=== PATIENT | female | born 1990 | race Caucasian/White ===

== ENCOUNTER 2016-07-20 18:38 | Inpatient (IN) | payer BC ==
[~2016-07-20] VITALS: Ht 160 cm; Wt 102.0 kg
[2016-07-20 19:30] LABS: ADD SCAN DIFF NO
[2016-07-20] MEDS ORDERED: CARBOPROST 250 MCG INJ IM PRN (19:30)
[2016-07-20] MEDS ORDERED: MISOPROSTOL 200 MCG TAB PR PRN (19:30)
[2016-07-20] MEDS ORDERED: LIDOCAINE 1% (MPF) 30 ML INJ INJ PRN (19:30)
[2016-07-20] MEDS ORDERED: OXYTOCIN 30 UNITS/LR 500 ML IV SCH ×3 (19:30)
[2016-07-20] MEDS ORDERED: OXYTOCIN 30 UNITS/LR 500 ML IV PRN (19:30)
[2016-07-20] MEDS ORDERED: METHYLERGONOVINE 0.2 MG INJ IM PRN (19:30)
[2016-07-20 19:35] LABS: BASOPHILS % 0.2 % (0.0-2.0); EOSINOPHILS # 0.1 10^3/ul (0.0-0.5); EOSINOPHILS % 1.2 % (0.0-7.0); HEMATOCRIT 36.2 % (37.0-47.0); LYMPHOCYTES # 2.2 10^3/ul (0.8-2.9); LYMPHOCYTES % 19.5 % (15.0-51.0); MEAN CORPUSCULAR HEMOGLOBIN 28.5 pg (29.0-33.0); MEAN CORPUSCULAR HGB CONC 33.1 g/dl (32.0-37.0); MEAN PLATELET VOLUME 10.6 fl (7.4-10.4); MONOCYTE # 0.9 10^3/ul (0.3-0.9); MONOCYTES % 7.7 % (0.0-11.0); NEUTROPHILS % 70.4 % (39.0-77.0); PLATELET COUNT 301 10^3/UL (140-415); RED BLOOD COUNT 4.21 10^6/ul (4.20-5.40); RED CELL DISTRIBUTION WIDTH 14.1 % (11.5-14.5); WHITE BLOOD COUNT 11.3 10^3/ul (4.8-10.8)
[2016-07-20] MEDS ORDERED: LACTATED RINGER'S 1,000 ML IV PRN (19:40)
[2016-07-20 20:02] LABS: INR 0.92; PROTIME 12.4 Sec (12.2-14.2)
[2016-07-20 20:03] LABS: PARTIAL THROMBOPLASTIN TIME 29.2 Sec (25.0-35.0)
[2016-07-20] MEDS: LACTATED RINGER'S 1,000 ML IV SCH (20:17)
[2016-07-20 21:06] VITALS: BP 124/78; PULSE 87; RESP 18
[2016-07-20 21:07] VITALS: Ht 160 cm; Wt 102.0 kg
[2016-07-21] MEDS ORDERED: FENTAnyl 2MCG/ML-ROPIV 0.2% 100 ML ONE (00:19)
[2016-07-21] MEDS ORDERED: DIPHENHYDRAMINE 50 MG INJ IV PRN ×3 (00:30→17:00)
[2016-07-21] MEDS ORDERED: FENTAnyl 2MCG/ML-ROPIV 0.2% 100 ML BAG EPI SCH (00:30)
[2016-07-21] MEDS ORDERED: ONDANSETRON 4 MG INJ IV PRN ×3 (00:30→17:00)
[2016-07-21] MEDS ORDERED: NALOXONE (0.4 MG/ML) INJ IV PRN ×2 (00:30→17:00)
[2016-07-21] MEDS: LACTATED RINGER'S 1,000 ML IV SCH ×3 (01:09→21:00)
[2016-07-21] MEDS ORDERED: LACTATED RINGER'S 1,000 ML IV ONE (14:26)
[2016-07-21] MEDS ORDERED: METOCLOPRAMIDE 10 MG INJ IV ONE (14:30)
[2016-07-21] MEDS ORDERED: CLINDAMYCIN 900 MG/D5W (PMX) 50 ML IVPB ONE (14:30)
[2016-07-21] MEDS ORDERED: FAMOTIDINE 20 MG INJ IV ONE (14:30)
[2016-07-21] MEDS ORDERED: CITRIC ACID/NA CITRATE 30 ML CUP PO ONE (14:30)
[2016-07-21] MEDS ORDERED: LIDOCAINE 2%/EPI 30 ML INJ ONE (14:54)
[2016-07-21] MEDS ORDERED: morphine SULFATE/PF (10 MG/10 ML) INJ ONE (14:54)
[2016-07-21] MEDS ORDERED: NA BICARBONATE 8.4% 50 ML SYG ONE (14:55)
[2016-07-21] MEDS ORDERED: FENTAnyl 50 MCG/ML VIAL ONE (14:55)
[2016-07-21] MEDS ORDERED: PHENYLephrine (100 MCG/ML) 5ML SYG ONE ×2 (15:03→15:39)
[2016-07-21] MEDS ORDERED: KETOROLAC 30 MG INJ IV PRN ×2 (15:30→17:00)
[2016-07-21] MEDS ORDERED: HYDROmorphONE (0.2 MG/ML) 10ML SYG IV PRN (15:30)
[2016-07-21] MEDS ORDERED: PROCHLORPERAZINE 10 MG INJ IV PRN ×2 (15:30→17:00)
[2016-07-21] MEDS ORDERED: FENTAnyl 50 MCG/ML VIAL IV PRN (15:30)
[2016-07-21] MEDS ORDERED: MEPERIDINE 25 MG INJ IV PRN (15:30)
[2016-07-21] MEDS ORDERED: OXYTOCIN 30 UNITS/LR 500 ML IV ONE (15:46)
[2016-07-21] MEDS ORDERED: OXYCODONE/ACETAMINOPHEN (5/325) TAB PO PRN (16:30)
[2016-07-21] MEDS ORDERED: LANOLIN 7 GM TUBE TOP PRN (16:30)
[2016-07-21] MEDS ORDERED: MISOPROSTOL 200 MCG TAB PR PRN (16:30)
[2016-07-21] MEDS ORDERED: METHYLERGONOVINE 0.2 MG INJ IM PRN (16:30)
[2016-07-21] MEDS ORDERED: CARBOPROST 250 MCG INJ IM PRN (16:30)
[2016-07-21] MEDS ORDERED: OXYTOCIN 30 UNITS/LR 500 ML IV PRN (16:30)
[2016-07-21] MEDS ORDERED: HYDROmorphONE 1 MG/ML SYG IV PRN ×2 (17:00)
[2016-07-21] MEDS ORDERED: ZOLPIDEM 5 MG TAB PO PRN (17:00)
[2016-07-21] MEDS ORDERED: NALBUPHINE HCL (10 MG/1 ML) INJ IV PRN (17:00)
[2016-07-21] MEDS ORDERED: EPHEDrine SULFATE 50 MG/5 ML SYG ONE (17:26)
[2016-07-21 18:50] VITALS: BP 108/57; PULSE 101; RESP 20
[2016-07-21 19:30] VITALS: BP 122/60; PULSE 109; RESP 20
[2016-07-22 00:05] VITALS: BP 105/59; PULSE 99; RESP 19
[2016-07-22 04:05] VITALS: BP 118/67; PULSE 95; RESP 18
[2016-07-22] MEDS: LACTATED RINGER'S 1,000 ML IV SCH ×2 (04:32→12:28)
--- NOTE | 2016-07-22 04:38 | OPR ---
DATE OF OPERATION: 07/21/2016 PREOPERATIVE DIAGNOSES: 1. Intrauterine at 39 weeks. 2. Arrest of descent. 3. Occiput posterior presentation. POSTOPERATIVE DIAGNOSES: 1. Intrauterine at 39 weeks. 2. Arrest of descent. 3. Occiput posterior presentation. 4. Status post delivery of a viable male infant weighing 3800 grams or 8 pounds 6 ounces with scores of 9 and 9. OPERATION PERFORMED: Primary low transverse section. SURGEON: Giovany Puentes MD CAUSTIC CRESYLATE SHIFT SUPERINTENDENT: Matilda Correa MD ANESTHESIA: Dr. Marcos with an epidural. ESTIMATED BLOOD LOSS: 500 mL COMPLICATIONS: None. PROCEDURE IN DETAIL: The patient was brought to the operating room, placed on the operating room table. Additional medication was given per her epidural catheter. A Can catheter was already in place. She was prepped and draped in usual sterile fashion. A Pfannenstiel incision was made using a knife through the skin and subcutaneous tissue down to the level of fascia. Fascia was incised and extended bilaterally using Bovie and scissors. Superior edge of the fascia was grasped with Gregory clamps, and the rectus muscles were from the overlying fascia using blunt dissection and Bovie cautery. This was repeated at the lower edge of the incision as well. The rectus muscles were in midline using the surgeon's fingers, and the anterior peritoneum was bluntly entered. The incision was then stretched open with hands. The bladder flap was developed using Metzenbaum scissors and blunt dissection. The lower uterine segment was then incised and entered with a Shana clamp. The fluid was clear. The incision was stretched open. The head was elevated through the incision, was not low in the pelvis, and was easy to bring out with a fair amount of caput on top and was occiput posterior presentation. Head was delivered with gentle fundal pressure. The rest of the baby was easily delivered. The mouth and nares were bulb suctioned, the cord was doubly clamped and cut, and the baby was brought to the warmer where the respiratory team was in attendance. The placenta was removed. The uterus was externalized, wrapped in a moist lap, and a dry lap was used to clean the interior of the uterus. The incision was closed in 2 layers using #1 chromic in a running locking stitch with excellent tissue approximation and hemostasis. Tubes and ovaries were examined and noted to be normal. The pelvis was irrigated well. Uterus was replaced back into the abdomen. Incision was examined again and noted to be dry. The anterior peritoneum was closed using 2- 0 chromic in a running stitch. The rectus muscles were brought back together at midline with the same suture. The underbelly of the fascia was examined and noted to be dry. The fascia was then closed using 0 Vicryl suture in a running stitch from each lateral edge to midline with overlap at the midline. The subcutaneous tissue was irrigated well, cautery applied where needed for hemostasis. That layer was closed using 2-0 chromic in a running stitch, and the skin was closed with 3-0 Monocryl in a subcuticular stitch. Steri-Strips with Mastisol were placed, and a pressure dressing was applied overall. The patient tolerated the procedure very well and was brought to recovery room in excellent condition. Dictated By: GIOVANY NEGRON/ENDY Conf#: [id number] DID#: [id number]
[2016-07-22 08:20] LABS: ADD SCAN DIFF NO
[2016-07-22 08:30] VITALS: BP 117/64; PULSE 95; RESP 20
[2016-07-22 08:35] LABS: BASOPHILS % 0.1 % (0.0-2.0); HEMATOCRIT 28.3 % (37.0-47.0); HEMOGLOBIN 8.9 g/dl (12.0-16.0); LYMPHOCYTES # 2.4 10^3/ul (0.8-2.9); MEAN CORPUSCULAR HEMOGLOBIN 27.9 pg (29.0-33.0); MEAN CORPUSCULAR HGB CONC 31.4 g/dl (32.0-37.0); MEAN CORPUSCULAR VOLUME 88.7 fl (82.0-101.0); MEAN PLATELET VOLUME 10.7 fl (7.4-10.4); MONOCYTE # 1.3 10^3/ul (0.3-0.9); MONOCYTES % 6.1 % (0.0-11.0); NEUTROPHIL # 17.5 10^3/ul (1.6-7.5); NEUTROPHILS % 81.9 % (39.0-77.0); PLATELET COUNT 223 10^3/UL (140-415); RED BLOOD COUNT 3.19 10^6/ul (4.20-5.40); RED CELL DISTRIBUTION WIDTH 14.8 % (11.5-14.5); WHITE BLOOD COUNT 21.4 10^3/ul (4.8-10.8)
[2016-07-22 12:45] VITALS: BP 115/62; PULSE 93; RESP 20
--- NOTE | 2016-07-22 14:51 | PN ---
Date/Time of Note Date/Time of Note DATE: 07/22/16 TIME: 14:47 OB Subjective Subjective Subjective passinfg flatus no significant c/o OB Objective Objective Objective vss afebrile abdomen soft wound dry lochia mod calf no tenderness wbc 21.4000 hnh 8.9/28.3 OB Assessment/Plan Other Assessment: stable POD #1 leukocytosis Other plan: repeat CBC URIEL MAURER MD Jul 22, 2016 14:51
[2016-07-22 16:00] VITALS: BP 124/72; PULSE 95; RESP 20
[2016-07-22] MEDS: IBUPROFEN 800 MG TAB PO SCH ×2 (17:18→21:59)
--- NOTE | 2016-07-22 17:26 | PREOPHP ---
DATE OF ADMISSION: 07/20/2016 HISTORY OF PRESENT ILLNESS: Patient is a 26-year-old 5, para 0, AB 4, spontaneous 3, therapeutic 1 with an intrauterine at age 39 weeks 1 day at delivery who was admitted for induction of labor. 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 Also of note, she has had extreme water retention over the last 2 months with higher blood pressures were normal, but not in the preeclamptic range. I am, therefore, inducing the patient. On examination, the patient was 70%, 3 cm, -2 station a week prior to admission and was admitted for a Pitocin induction. PAST MEDICAL HISTORY: Only the recurrent loss. Workup for antiphospholipid syndrome that was negative. PAST SURGICAL HISTORY: She had wisdom teeth removed. She had 3 D and C's. ALLERGIES: 1. PENICILLIN. 2. CODEINE. 3. SULFA. 4. LATEX GLOVES. MEDICATIONS: vitamins only. PHYSICAL EXAMINATION: HEART: Regular rate and rhythm. LUNGS: Clear to auscultation. ABDOMEN: Soft, nontender, gravid. PELVIC: Cervical exam 70%, 3 - 2, intact on admission. EXTREMITIES: 3+ edema. LABORATORY DATA: Patient's blood work: HIV negative. TSH was normal. RPR nonreactive. Hepatitis B surface antigen negative, hepatitis C antibody negative, rubella immune, urinalysis and urine drug screens were negative. Hemoglobin initially 13.5 with a white count of 9.7, platelets 240,000. Hemoglobin A1c was normal at 5. LABORATORY WORK: Blood type A positive, antibody screen negative. She is beta strep negative and 1 hour post-Glucola was also normal at 90. Repeat hemoglobin at that time was 10.6. Patient was brought in for induction and she was initiated on Pitocin, contracted very quickly to regular contractions over the first few hours with Pitocin, to every 2 to 3 minutes. Hospital course: The patient is moderately uncomfortable. Water was then broken and very quickly progressed to intolerable contractions and she received her epidural in the morning. From 11:00 at night until 7:00 in the morning, the patient progressed. She was 5 to 6 cm early in the morning. At 9:00, she was 8 to 9 cm. The vertex was still high and she progressed to complete at about noontime and about 1:00 we started pushing with the patient. The patient was an excellent pusher with good breath holding and good endurance; however, she never brought the baby's head down. We also noted that the baby was occiput posterior at presentation. After an hour to an hour and a half of pushing, the patient after discussion opted for a section. We had her sign a consent and proceeded in that direction. ASSESSMENT: Intrauterine at 39 weeks. Occiput posterior presentation and arrest of descent. PLAN: Primary low transverse section. Dictated By: AB NEGRON/ENDY Conf#: [id number] DID#: [id number] GABI
[2016-07-22 20:00] VITALS: BP 116/75; PULSE 94; RESP 19
[2016-07-23] VITALS: BP 119/77; PULSE 93; RESP 18
[2016-07-23] MEDS: LACTATED RINGER'S 1,000 ML IV SCH ×4 (00:19→16:19)
[2016-07-23 03:45] VITALS: BP 128/82; PULSE 86; RESP 19
[2016-07-23] MEDS: OXYCODONE/ACETAMINOPHEN (5/325) TAB PO PRN ×3 (04:52→17:50)
[2016-07-23] MEDS: IBUPROFEN 800 MG TAB PO SCH ×3 (05:45→23:10)
[2016-07-23 07:05] LABS: ADD SCAN DIFF NO
[2016-07-23 07:11] LABS: BASOPHILS % 0.2 % (0.0-2.0); EOSINOPHILS # 0.1 10^3/ul (0.0-0.5); EOSINOPHILS % 0.5 % (0.0-7.0); HEMATOCRIT 28.9 % (37.0-47.0); HEMOGLOBIN 9.5 g/dl (12.0-16.0); LYMPHOCYTES # 2.1 10^3/ul (0.8-2.9); LYMPHOCYTES % 11.3 % (15.0-51.0); MEAN CORPUSCULAR HEMOGLOBIN 29.1 pg (29.0-33.0); MEAN CORPUSCULAR HGB CONC 32.9 g/dl (32.0-37.0); MEAN CORPUSCULAR VOLUME 88.7 fl (82.0-101.0); MONOCYTE # 1.1 10^3/ul (0.3-0.9); MONOCYTES % 5.8 % (0.0-11.0); NEUTROPHIL # 15.3 10^3/ul (1.6-7.5); NEUTROPHILS % 80.9 % (39.0-77.0); PLATELET COUNT 242 10^3/UL (140-415); RED BLOOD COUNT 3.26 10^6/ul (4.20-5.40); RED CELL DISTRIBUTION WIDTH 14.6 % (11.5-14.5); WHITE BLOOD COUNT 18.9 10^3/ul (4.8-10.8)
[2016-07-23 07:30] VITALS: BP 131/78; PULSE 86; RESP 18
--- NOTE | 2016-07-23 14:01 | PN ---
Date/Time of Note Date/Time of Note DATE: 07/23/16 TIME: 14:00 OB Subjective Subjective Subjective no b.m yet tolerating diet well OB Objective Objective Objective vss afebrile abdomen soft wound dry calf neg OB Assessment/Plan Other Assessment: poc/s#2 stable Other plan: as ordered URIEL MAURER MD Jul 23, 2016 14:01
[2016-07-23 16:00] VITALS: BP 127/81; PULSE 96; RESP 18
[2016-07-23 19:50] VITALS: BP 119/67; PULSE 95; RESP 18
[2016-07-24] MEDS: LACTATED RINGER'S 1,000 ML IV SCH ×3 (00:03→16:19)
[2016-07-24 04:00] VITALS: BP 100/63; RESP 17
[2016-07-24] MEDS: IBUPROFEN 800 MG TAB PO SCH ×3 (05:35→21:36)
[2016-07-24 08:46] VITALS: BP 109/71; PULSE 93; RESP 18
[2016-07-24] MEDS ORDERED: MAGNESIUM HYDROXIDE 30ML CUP PO ONE (15:00)
[2016-07-24] MEDS: DOCUSATE SODIUM 100 MG CAP PO SCH (15:02)
[2016-07-24 15:12] VITALS: BP 115/77; PULSE 76; RESP 18
[2016-07-24 20:00] VITALS: BP 123/64; PULSE 77; RESP 20
[2016-07-25] MEDS: LACTATED RINGER'S 1,000 ML IV SCH (00:19)
--- NOTE | 2016-07-25 00:32 | QN ---
Documentation Comment Date 07/24/16 POD #3 Feeling well. Was very weepy this AM as the baby had to go under bili-lites and the pt had a lot of questions re: this and didn't feel they were being answered. + , still not engorged so is supplementing due to the elevated bilirubin. + flatus. Afebrile, VSS. Incision C/D and I. Lochia minimal Extremities 2+ pitting edema. P: Continue care. Reviewed and formula supplementation. Reviewed the need to sleep with the lights out whenever possible to help minimize stress and depression. AB GARCIA MD Jul 25, 2016 00:32
[2016-07-25 03:16] VITALS: BP 122/62; PULSE 74; RESP 20
[2016-07-25] MEDS: IBUPROFEN 800 MG TAB PO SCH ×2 (05:31→14:50)
[2016-07-25 07:52] VITALS: BP 136/75; PULSE 80; RESP 18
[2016-07-25] MEDS: DOCUSATE SODIUM 100 MG CAP PO SCH (08:13)
[2016-07-25] MEDS: OXYCODONE/ACETAMINOPHEN (5/325) TAB PO PRN (08:29)
--- NOTE | 2016-07-25 14:11 | PD.PPDC ---
GIS DEVELOPER Discharge Instruction Condition Patient Condition: Good Diet Diet: Resume Regular Diet Activity/Restrictions Activity: Bedrest May be up to bathroom May be up for meals May Shower Restrictions: No Exercising No Lifting No Driving Minimize Walking Minimize Stair-climbing No Sexual Activity Nothing in the Vagina No [place] No Tampons, douche Wound/Drain Care Instructions Wound/Drain Care Instructions: Keep clean and dry Follow-up Follow-up with Physician: 2, Week/Weeks Return to clinic for FLEX O WRITER OPERATOR Instructions: Fever greater than 101 Chills Worsening abdominal pain Excessive Vaginal Bleeding OB Instructions: Breast Tenderness Depression Surgical Instructions: Incisional Drainage Incisional Redness BA GARCIA MD Jul 25, 2016 14:11
--- NOTE | 2016-07-25 14:14 | DS ---
Date/Time of Note Date/Time of Note DATE: 07/25/16 TIME: 14:12 Obstetrical Discharge Record Final Diagnosis Final Diagnosis: Term delivered Section Section: Primary Primary Indication Occiput posterior presentation. Arrest of descent. Complications Augmentation: Yes Induction: Yes Condition on Discharge Physical Assessment Last Vitals: 97.6 137/75 Bowel Movement: Yes Breast: Filling Fundus: Firm Abdomen and Incision: Incision clean, dry and intact. Calf Tenderness: No Patient Condition: Good AB GARCIA MD Jul 25, 2016 14:14
== END 2016-07-25 16:24 | disposition home or self-care (01) | DRG 766 ==
LOC: L-D 18:38 → PP1 07-21 18:38
PROVIDERS: ADMIT Obstetrics & Gynecology; ATTEND Obstetrics & Gynecology
PROC: 10D00Z1 Extraction of Products of Conception, Low, Open Approach (ICD-10-PCS; principal; 2016-07-21 15:30)
DX: O62.1 Secondary uterine inertia (principal); O16.4 Unspecified maternal hypertension, complicating childbirth; O32.8XX0 Maternal care for other malpresentation of fetus, not applicable or unspecified; O99.214 Obesity complicating childbirth; E66.01 Morbid (severe) obesity due to excess calories; Z68.39 Body mass index [BMI] 39.0-39.9, adult; Z3A.39 39 weeks gestation of pregnancy; Z37.0 Single live birth
CPT/HCPCS: 62319; 85025; 85610; 85730; 86592; 86900; 86901; 94760; 99464; J1170; J1885; J2210; J2274; J2370; J2405; J2590; J2765; J3010; J7120

== ENCOUNTER 2017-12-17 22:59 | Outpatient (CLI) | END 2017-12-18 04:40 | disposition home or self-care (01) ==

== ENCOUNTER 2018-01-01 10:29 | Inpatient (IN) | END 2018-01-04 14:22 | disposition home or self-care (01) | DRG 766 ==